=== PATIENT | male | born 1935 | race Caucasian/White ===

== ENCOUNTER 2016-11-12 06:53 | Day surgery (SDC) | payer MEDICARE, OTHER ==
[~2016-11-12 06:53] MED LIST: ATOR10 PO; CLOP75 PO; ECASA PO; ENAL2.5 PO; ISOS30TA3 PO; LIPA1CAP5 PO; METO25 PO; NITR0.4S SL; SYNT125T PO
[2016-11-12] MEDS ORDERED: MIDAZOLAM HCL 5 MG/ML VIAL (1 ML) ONE (07:40)
[2016-11-12] MEDS ORDERED: ceFAZolin INJ 1,000 MG VIAL ONE (07:40)
[2016-11-12] MEDS ORDERED: NS 1000 ML IV SCH (08:00)
[2016-11-12] MEDS ORDERED: ceFAZolin 2 GM PREMIX 50 ML IV SCH (08:00)
[2016-11-12] MEDS ORDERED: MUPIROCIN 2% OINT 1 APPLIC/GM SYR NASAL SCH (08:00)
[2016-11-12] MEDS ORDERED: VANCOMYCIN 1000 MG/NS 250 ML IV SCH ×2 (08:00)
[2016-11-12] MEDS: POVIDONE IODINE 5% (ANTISEPSIS KIT) 4 APPLICATIONS EACH NARE SCH ×2 (08:08→09:00)
[2016-11-12] MEDS: CHLORHEXIDINE GLUCONATE 2 % 1 PACK (2 CLOTHS) TOP SCH ×2 (08:08→09:01)
--- NOTE | 2016-11-12 11:18 | MA ---
cc: AMOS KRISHNAMURTHY DATE 11/12/2016 PROCEDURE Implantation of a Medtronic loop recorder. INDICATIONS Recurrent unexplained syncope/near-syncope. PROCEDURE NOTE The patient was brought to the DOC Unit in a fasting state after having signed informed consent. The left chest was prepped and draped as per policy and a small region anesthetized at approximately the left fourth intercostal space. The Medtronic loop recorder was inserted as per protocol without difficulty. A Steri-Strip was placed over the very small incision. There were no apparent immediate complications. CONCLUSION Successful implantation of a Medtronic Reveal loop recorder. MD QUIANA Espinoza/PREMA /9:35 AM /11:16 AM MTDTiffany
== END 2016-11-12 09:58 | disposition home or self-care (01) ==
LOC: HDOC 06:53 → HDIC 06:53 → HDOC 09:58
PROVIDERS: ATTEND Internal Medicine Cardiovascular Disease
DX: R55 Syncope and collapse (principal); I25.10 Atherosclerotic heart disease of native coronary artery without angina pectoris
CPT/HCPCS: 33282; C1764; J0690; J2250; J3010; J7030

== ENCOUNTER 2016-12-30 12:44 | Day surgery (SDC) | payer MEDICARE, OTHER ==
[~2016-12-30] VITALS: Ht 180.3 cm; Wt 63.0 kg
[2016-12-30] MEDS ORDERED: METOPROLOL TARTRATE 25 MG TAB PO PRN (13:15)
[2016-12-30] MEDS ORDERED: CHLORHEXIDINE GLUCONATE 2 % 1 PACK (2 CLOTHS) TOPICAL PRN (13:15)
[2016-12-30] MEDS ORDERED: ceFAZolin 2 GM PREMIX 50 ML IV SCH (13:15)
[2016-12-30] MEDS ORDERED: LACTATED RINGER'S 1000 ML IV PRN (13:15)
[2016-12-30] MEDS ORDERED: POVIDONE IODINE 5% (ANTISEPSIS KIT) 4 APPLICATIONS EACH NARE PRN (13:15)
[2016-12-30] MEDS ORDERED: MUPIROCIN 2% OINT 1 APPLIC/GM SYR NASAL SCH (13:15)
[2016-12-30] MEDS ORDERED: NS 1000 ML IV SCH (13:15)
[2016-12-30] MEDS ORDERED: SODIUM CHLORID 0.9% 500 ML IV PRN (13:15)
[2016-12-30] MEDS ORDERED: INSULIN HUMAN REGULAR 1,000 UNITS/10 ML VIAL SQ PRN (13:15)
[2016-12-30] MEDS ORDERED: CHLORHEXIDINE GLUCONATE 2 % 1 PACK (2 CLOTHS) TOPICAL SCH (13:15)
[2016-12-30] MEDS ORDERED: VANCOMYCIN 1000 MG/NS 250 ML IV SCH ×2 (13:15)
[2016-12-30] MEDS ORDERED: POVIDONE IODINE 5% (ANTISEPSIS KIT) 4 APPLICATIONS EACH NARE SCH (13:15)
[2016-12-30 13:23] VITALS: BP 150/73; PULSE 89; RESP 18; TEMP 97.7; O2SAT 100
[2016-12-30] MEDS ORDERED: ASPI1TAB69 PO (13:34)
[2016-12-30] MEDS ORDERED: NITR0.4S SL (13:34)
[2016-12-30] MEDS ORDERED: ZENP2000 PO (13:34)
[2016-12-30] MEDS ORDERED: SYNT25TA PO (13:34)
[2016-12-30] MEDS ORDERED: ZOCO20TA PO (13:34)
[2016-12-30 13:40] LABS: BASOPHIL % 0.5 % (0.0-2.0); EOSINOPHIL % 0.3 % (0.0-4.0); HEMATOCRIT 40.4 % (39.0-51.0); HEMO FLAGS DIFF FINAL; LYMPH % 16.1 % (9.0-44.0); LYMPHOCYTE # 1.3 TH/MM3 (1.0-4.8); MEAN CELL VOLUME 92.6 FL (80.0-100.0); MEAN CORPUSCULAR HEMOGLOBIN 32.1 PG (27.0-34.0); MEAN CORPUSCULAR HGB CONC 34.7 % (32.0-36.0); MONO % 9.9 % (0.0-8.0); NEUT % 73.2 % (16.0-70.0); PLATELET COUNT 166 TH/MM3 (150-450); RED BLOOD COUNT 4.36 MIL/MM3 (4.50-5.90); RED CELL DISTRIBUTION WIDTH 14.5 % (11.6-17.2); WHITE BLOOD COUNT 8.2 TH/MM3 (4.0-11.0)
[2016-12-30 13:49] LABS: APTT (PATIENT) 36.9 SEC (24.3-30.1); PROTHROMBIN TIME - PATIENT 10.6 SEC (9.8-11.6)
[2016-12-30 13:56] LABS: BICARBONATE 28.9 MEQ/L (21.0-32.0)
[2016-12-30] MEDS ORDERED: MIDAZOLAM HCL 2 MG/2 ML VIAL ONE (16:32)
[2016-12-30] MEDS ORDERED: PROPOFOL 200 MG/20 ML AMP OTHER ONE (16:42)
[2016-12-30] MEDS ORDERED: LIDOCAINE HCL 2% 50 ML VIAL ONE ×2 (16:59→17:00)
[2016-12-30] MEDS ORDERED: ZOLPIDEM TARTRATE 5 MG TAB PO PRN (18:30)
[2016-12-30] MEDS ORDERED: VANCOMYCIN INJ 1,000 MG in SODIUM CHLOR 0.9% 250 ML INJ 250 ML IV ONE (18:30)
[2016-12-30] MEDS ORDERED: traMADol HCL 50 MG TAB PO PRN (18:30)
[2016-12-30 18:45] VITALS: BP 126/63; PULSE 74; RESP 18; TEMP 97.3; O2SAT 99
[2016-12-30 19:00] VITALS: PULSE 72
--- NOTE | 2016-12-30 19:20 | RADRPT ---
EXAM DATE/TIME: 12/30/2016 18:26 [facility] COMPARISON: CHEST SINGLE AP, March 21, 2015, 21:40. INDICATIONS : Evaluate for pneumothroax. Post pacemaker placement. MEDICAL HISTORY : None. SURGICAL HISTORY : Pacemaker. ENCOUNTER: Initial ACUITY: 1 day PAIN SCORE: Non-responsive. LOCATION: Bilateral chest FINDINGS: Interval placement of cardiac pacer with bipolar leads. No evidence of pneumothorax. The lungs are symmetrically aerated. Moderate tortuosity and ectasia of the thoracic aorta. The heart is normal s ize. Both hemidiaphragms well delineated. CONCLUSION: No evidence of pneumothorax status post pacemaker placement. Caio Mccloud MD on December 30, 2016 at 19:17 Board Certified Radiologist. This report was verified electronically.
[2016-12-30] MEDS ORDERED: DO NOT ADM ANY ANTICOAGULANT DRUGS PRN (19:30)
[2016-12-30 20:00] VITALS: BP 136/66; PULSE 70; RESP 16; TEMP 97.8; O2SAT 99
[2016-12-30] MEDS: LIPASE/PROTEASE/AMYLASE (24,000/76,000/120,000) CAP PO SCH (20:37)
[2016-12-30 23:43] VITALS: BP 135/62; PULSE 77; PULSE 79; RESP 18; TEMP 98.6; O2SAT 99
[2016-12-31] VITALS (12 sets, daily range): BP systolic 105–112; BP diastolic 61–67; PULSE 70–95; RESP 18–20; TEMP 99–99.5; O2SAT 96–98
[2016-12-31] MEDS ORDERED: LEVOTHYROXINE SODIUM 25 MCG TAB PO SCH (06:00)
[2016-12-31] MEDS ORDERED: ASPIRIN EC 81 MG TABEC PO SCH (09:00)
[2016-12-31] MEDS ORDERED: PRAVASTATIN SOD 40 MG TAB PO SCH (09:00)
[2016-12-31] MEDS: LIPASE/PROTEASE/AMYLASE (24,000/76,000/120,000) CAP PO SCH (09:08)
--- NOTE | 2016-12-31 09:08 | PD.CARD.PN ---
Subjective Subjective Remarks Denies pain, dyspnea, dizziness. Objective Medications Item Value Date Time Aspirin 81 mg 12/31/16 0900 (Ecotrin Ec) DAILY/PO Pravastatin Sodium 40 mg 12/31/16 0900 (Pravachol) DAILY/PO Vital Signs / I&O Vital Signs Date Time Temp Pulse Resp B/P Pulse Ox O2 Delivery O2 Flow Rate FiO2 12/31/16 08:00 95 12/31/16 07:00 86 12/31/16 07:00 99.5 93 20 112/67 96 12/31/16 06:12 82 12/31/16 05:53 84 12/31/16 04:39 72 12/31/16 03:00 99.0 91 18 105/61 98 12/31/16 03:00 86 12/31/16 02:00 72 12/31/16 01:43 70 12/31/16 00:54 98 21 12/31/16 00:49 77 12/30/16 23:43 98.6 79 18 135/62 99 12/30/16 23:43 77 12/30/16 20:00 97.8 70 16 136/66 99 12/30/16 19:00 72 12/30/16 18:45 97.3 74 18 126/63 99 12/30/16 13:23 97.7 89 18 150/73 100 I/O 12/30/16 12/30/16 12/30/16 12/31/16 12/31/16 12/31/16 07:00 15:00 23:00 07:00 15:00 23:00 Intake Total 950 ml Output Total 1000 ml Balance -50 ml Intake Oral 700 ml IV Total 250 ml Output Urine Total 1000 ml # Bowel Movements 0 Physical Exam Pacer site clean, dry, intact, nontender. No hematoma. Laboratory Laboratory Tests Test 12/30/16 13:10 White Blood Count 8.2 TH/MM3 Red Blood Count 4.36 MIL/MM3 Hemoglobin 14.0 GM/DL Hematocrit 40.4 % Mean Corpuscular Volume 92.6 FL Mean Corpuscular Hemoglobin 32.1 PG Mean Corpuscular Hemoglobin 34.7 % Concent Red Cell Distribution Width 14.5 % Platelet Count 166 TH/MM3 Mean Platelet Volume 8.4 FL Neutrophils (%) (Auto) 73.2 % Lymphocytes (%) (Auto) 16.1 % Monocytes (%) (Auto) 9.9 % Eosinophils (%) (Auto) 0.3 % Basophils (%) (Auto) 0.5 % Neutrophils # (Auto) 6.0 TH/MM3 Lymphocytes # (Auto) 1.3 TH/MM3 Monocytes # (Auto) 0.8 TH/MM3 Eosinophils # (Auto) 0.0 TH/MM3 Basophils # (Auto) 0.0 TH/MM3 CBC Comment DIFF FINAL Differential Comment Prothrombin Time 10.6 SEC Prothromb Time International 1.0 RATIO Ratio Activated Partial 36.9 SEC Thromboplast Time Sodium Level 130 MEQ/L Potassium Level 4.0 MEQ/L Chloride Level 92 MEQ/L Carbon Dioxide Level 28.9 MEQ/L Anion Gap 9 MEQ/L Blood Urea Nitrogen 15 MG/DL Creatinine 0.85 MG/DL Estimat Glomerular Filtration 86 ML/MIN Rate Random Glucose 94 MG/DL Calcium Level 9.0 MG/DL Imaging Last 48 hours Impressions Chest X-Ray 12/30/16 0000 Signed Impressions: Service Date/Time: Friday, December 30, 2016 18:26 - CONCLUSION: No evidence of pneumothorax status post pacemaker placement. Caio Mccloud MD Assessment and Plan Problem List: (1) Status post placement of cardiac pacemaker Assessment and Plan: Stable overnight. Pacer site OK. Pacer re-interrogation shows stable, good pacing parameters. To discharge home today, same home medications plus Levaquin 500 mg qd for 5 days. Follow up in our office next week for pacer and incision site recheck. (2) Hyperlipidemia Assessment and Plan: Continues on statin. Follows with his PCP as an outpatient. (3) CAD (coronary artery disease) Assessment and Plan: History of NSTEMI treated medically. Stable. No angina symptoms. LV function by previous echo normal. Continue daily aspirin. Code Status full code Discussed Condition With patient Problem Qualifiers (1) Hyperlipidemia: Qualified Code: E78.2 - Mixed hyperlipidemia (2) CAD (coronary artery disease): Qualified Code: I25.10 - Coronary artery disease involving [place] coronary artery of [place] heart without angina pectoris Ancelmo Bear MD Dec 31, 2016 09:08
[2016-12-31] MEDS ORDERED: LEVA500T PO (09:12)
--- NOTE | 2016-12-31 11:04 | EKG ---
Date Performed: 12/30/2016 Time Performed: 13:23:32 PTAGE: 81 years EKG: Sinus rhythm . Left axis deviation RBBB with left anterior fascicular block Possible septal infarct - age undeterm ined Abnormal ECG PREVIOUS TRACING : 03/22/2015 11.08 DOCTOR: Angel Heller Interpretating Date/Time 12/31/2016 11:02:29
--- NOTE | 2017-01-01 17:05 | MP ---
cc: MYLA KRISHNAMURTHY M.D. DATE OF SURGERY: 12/30/2016. PROCEDURE: Dual-chamber permanent pacemaker implantation via the right subclavian vein, explantation of a loop recorder from the left chest. INDICATIONS: Symptomatic sick sinus syndrome. DESCRIPTION OF THE PROCEDURE IN DETAIL / OPERATIVE NOTES: The patient was brought to the operating suite in a fasting state after having signed informed consent. The right upper chest was prepped and draped as per policy and anesthetized with 1% lidocaine. Using modified Seldinger technique, central venous access was obtained twice via the right subclavian vein after administration of 10 mL of contrast through a right arm peripheral IV. A transverse incision was made inferior to the right clavicle and using blunt dissection a subcutaneous pocket was formed down to the pectoralis fascia. Over the more lateral guidewire, 6-[place] sheath was placed and through this sheath a ventricular active fixation lead was introduced and its tip positioned in the right ventricular apex where good current of injury, stimulation threshold (0.7 volts) and sensitivity (5.8 mV) were verified. This lead was secured into place using 2-0 silk ties down to the pectoralis fascia. Over the remaining guidewire, a 7-[place] sheath was placed and through this sheath an atrial active fixation lead was introduced and its tip positioned in the right atrial appendage where good current of injury, stimulation threshold (1.8 volts) and sensitivity (1.2 mV) were verified. This lead was secured into place using 2-0 silk ties down to the pectoralis fascia. The leads were then connected to the pacemaker generator which is a [employer] MRI compatible Eluna device. The leads and the generator were then placed back into the subcutaneous pocket which was closed using 3-0 Vicryl interrupted stitches in two layers to close the subcutaneous tissue and then 4-0 Monocryl running stitch to close the subcuticular tissue. Overlapping Steri-Strips and a dressing were applied. There were no apparent immediate complications. A portable chest x-ray is pending at the time of this dictation. The left upper chest was also prepped and draped as per policy. A transverse incision was made over the preexisting loop recorder, and the loop recorder removed without difficulty. Steri-Strips were placed over the small incision. CONCLUSIONS: Successful dual-chamber permanent pacemaker implantation via the right subclavian vein using a [employer] Eluna pacemaker generator, status post extraction of a loop recorder from the left chest. MD QUIANA Espinoza/FABIAN /6:13 PM /4:49 PM EDMUND
== END 2016-12-31 09:58 | disposition home or self-care (01) ==
LOC: HDOC 12:44 → HDIC 12:44 → HCIS 18:39 → HDOC 12-31 09:58
PROVIDERS: ATTEND Internal Medicine Cardiovascular Disease
DX: I49.5 Sick sinus syndrome (principal); I45.2 Bifascicular block; I25.10 Atherosclerotic heart disease of native coronary artery without angina pectoris; J44.9 Chronic obstructive pulmonary disease, unspecified; R42 Dizziness and giddiness; E78.5 Hyperlipidemia, unspecified; R79.1 Abnormal coagulation profile; D64.9 Anemia, unspecified; Z79.82 Long term (current) use of aspirin
CPT/HCPCS: 00530; 33208; 33284; 71010; 80048; 85025; 85610; 85730; 93005; C1785; C1898; J2250; J3010; J3370; J7050; C1779

== ENCOUNTER 2018-02-04 03:55 | Emergency (ER) | payer MEDICARE, OTHER ==
[~2018-02-04] VITALS: Ht 172.7 cm; Wt 65.0 kg
[~2018-02-04 03:55] MED LIST changes: +ASPI1TAB69 PO; -ATOR10 PO; -CLOP75 PO; -ECASA PO; -ENAL2.5 PO; -ISOS30TA3 PO; +LEVA500T PO; -LIPA1CAP5 PO; -METO25 PO; -SYNT125T PO; +SYNT25TA PO; +ZENP2000 PO; +ZOCO20TA PO
[2018-02-04 04:08] VITALS: BP 161/74; PULSE 62; RESP 16; TEMP 98.9; O2SAT 99
[2018-02-04] MEDS ORDERED: ASPI-516 CHEW (04:14)
[2018-02-04] MEDS ORDERED: TETANUS/DIPHTHERIA TOXOID ADULT 0.5 ML VIAL IM ONE (04:30)
[2018-02-04 04:35] LABS: AUTOMATED NEUTROPHIL # 9.7 TH/MM3 (1.8-7.7); BASOPHIL # 0.1 TH/MM3 (0-0.2); BASOPHIL % 0.4 % (0.0-2.0); EOSINOPHIL % 0.1 % (0.0-4.0); HEMATOCRIT 30.8 % (39.0-51.0); HEMOGLOBIN 10.8 GM/DL (13.0-17.0); LYMPH % 11.3 % (9.0-44.0); LYMPHOCYTE # 1.4 TH/MM3 (1.0-4.8); MEAN CELL VOLUME 88.4 FL (80.0-100.0); MEAN PLATELET VOLUME 7.7 FL (7.0-11.0); MONO % 8.3 % (0.0-8.0); NEUT % 79.9 % (16.0-70.0); PLATELET COUNT 305 TH/MM3 (150-450); RED BLOOD COUNT 3.48 MIL/MM3 (4.50-5.90); RED CELL DISTRIBUTION WIDTH 16.4 % (11.6-17.2); WHITE BLOOD COUNT 12.2 TH/MM3 (4.0-11.0)
[2018-02-04 04:47] LABS: ALBUMIN 2.8 GM/DL (3.4-5.0); ALT (GPT) 17 U/L (12-78); AST (GOT) 28 U/L (15-37); BICARBONATE 24.6 MEQ/L (21.0-32.0); BLOOD UREA NITROGEN 18 MG/DL (7-18); CALCIUM 8.4 MG/DL (8.5-10.1); CHLORIDE 100 MEQ/L (98-107); CREATININE 0.96 MG/DL (0.60-1.30); GLOMERULAR FILTRATION RATE 75 ML/MIN (>89); GLUCOSE,RANDOM 117 MG/DL (74-106); SODIUM (NA) 133 MEQ/L (136-145)
[2018-02-04 04:48] LABS: ALKALINE PHOSPHATASE 145 U/L (45-117); TOTAL BILIRUBIN ADULT 0.6 MG/DL (0.2-1.0)
--- NOTE | 2018-02-04 04:55 | RADRPT ---
EXAM DATE/TIME: 02/04/2018 04:35 [facility] COMPARISON: No previous studies available for comparison. INDICATIONS : Trauma, fall. Patient denies hitting head. RADIATION DOSE: 41.14 CTDIvol (mGy) MEDICAL HISTORY : Carcinoma, pancreas. Myocardial infarction. Chronic obstructive pulmonary disease. SURGICAL HISTORY : Pacemaker. ENCOUNTER: Initial ACUITY: 1 day PAIN SCALE: 0/10 LOCATION: cranial TECHNIQUE: Multiple contiguous axial images were obtained of the head. Using automated exposure control and adj ustment of the mA and/or kV according to patient size, radiation dose was kept as low as reasonably a chievable to obtain optimal diagnostic quality images. DICOM format image data is available electro nically for review and comparison. FINDINGS: CEREBRUM: The ventricles are normal for age with diffuse moderate atrophic change. There is sulcal and ventricu lar prominence. No evidence of midline shift, mass lesion, hemorrhage or acute infarction. No extra- axial fluid collections are seen. POSTERIOR FOSSA: The cerebellum and brainstem are intact. The 4th ventricle is midline. The cerebellopontine angle i s unremarkable. EXTRACRANIAL: The visualized portion of the orbits is intact. SKULL: The calvaria is intact. No evidence of skull fracture. CONCLUSION: 1. Negative trauma CT with no evidence of fracture or hemorrhage. 2. Diffuse moderate atrophic change. Carter Arreaga MD on February 04, 2018 at 4:53 Board Certified Radiologist. This report was verified electronically.
--- NOTE | 2018-02-04 05:09 | RADRPT ---
EXAM DATE/TIME: 02/04/2018 04:28 [facility] COMPARISON: No previous studies available for comparison. INDICATIONS : Left hand pain after fall. MEDICAL HISTORY : Carcinoma, pancreatic. SURGICAL HISTORY : Pacemaker. ENCOUNTER: Initial ACUITY: 1 day PAIN SCORE: 8/10 LOCATION: Left hand. FINDINGS: AP, lateral and oblique views of the left hand were obtained and demonstrate diffuse osteopenia. Dege nerative changes are noted involving the interphalangeal joints with joint space loss, sclerosis and hypertrophic changes. There is moderate degenerative change involving the first metacarpal carpal yoon nt as well as degenerative change involving the trapezium scaphoid joint. There is no acute fracture or malalignment. The distal radius and ulna are intact. There is no focal soft tissue abnormality. CONCLUSION: 1. No acute fracture or malalignment. 2. Diffuse osteopenia and osteoarthritic changes. Carter Arreaga MD on February 04, 2018 at 5:06 Board Certified Radiologist. This report was verified electronically.
[2018-02-04 05:16] LABS: TOXIC GRANULATION 1+ (NORMAL)
--- NOTE | 2018-02-04 05:17 | RADRPT ---
EXAM DATE/TIME: 02/04/2018 04:25 [facility] COMPARISON: No previous studies available for comparison. INDICATIONS : Left elbow pain after fall. MEDICAL HISTORY : Carcinoma, pancreatic. SURGICAL HISTORY : Pacemaker. ENCOUNTER: Initial ACUITY: 1 day PAIN SCORE: 8/10 LOCATION: Left elbow. FINDINGS: Multiple view examination of the left elbow demonstrates no soft tissue swelling, joint effusion, or fracture. The osseous structures are in normal alignment. Bony mineralization is normal. CONCLUSION: Negative trauma study. Carter Arreaga MD on February 04, 2018 at 5:16 Board Certified Radiologist. This report was verified electronically.
[2018-02-04] MEDS ORDERED: AUGM875T3 PO (05:54)
--- NOTE | 2018-02-04 05:54 | PD ---
HPI Chief Complaint: Fall Time Seen by Provider: 04:16 Travel History International Travel<30 days: No Contact w/Intl Traveler<30days: No Traveled to known affect area: No History of Present Illness HPI Patient is an 82-year-old male with history of cancer, currently undergoing chemo, who comes in after a fall. He says he has been increasingly weak due to the chemo and has been falling often. He fell yesterday, but did not come to the hospital. Today he says he was on the toilet when he fell forward because he leaned over too far. He denies any loss of consciousness. He has multiple skin tears to his arms. He denies fever or chills. He denies chest pain or shortness of breath. He denies abdominal pain, nausea or vomiting. He does not know when his last tetanus vaccine was. Severity is mild to moderate. PFSH Past Medical History Autoimmune Disease: No Cancer: Yes (PANCREATIC) Cardiovascular Problems: Yes (ME, CAD) High Cholesterol: Yes Chemotherapy: Yes Chest Pain: No COPD: Yes ("SLIGHT") Diabetes: No Diminished Hearing: Yes ([place]) Endocrine: Yes Gastrointestinal Disorders: Yes (LIVER ABSCESS) GERD: Yes Glaucoma: No Genitourinary: No Hepatitis: No Hiatal Hernia: No Hypertension: No Immune Disorder: No Neurologic: No Psychiatric: No Reproductive: No Respiratory: Yes (COPD) Integumentary: No Immunizations Current: Yes Radiation Therapy: Yes Thyroid Disease: Yes (hypothyroid) Tetanus Vaccination: Unknown Influenza Vaccination: Yes Past Surgical History Abdominal Surgery: Yes (BILL MCKEON 2 PROCEDURE; BILAT ING HERNIA) Genitourinary Surgery: Yes (TRUP) Tonsillectomy: Yes Other Surgery: Yes (HEAD OF PANCREAS REMOVED) Social History Alcohol Use: No Tobacco Use: No Substance Use: No Allergies-Medications (Allergen,Severity, Reaction): Coded Allergies: meperidine (Unverified Allergy, Unknown, HALLUCINATIONS, 05/12/17) Reported Meds & Prescriptions Reported Meds & Active Scripts Active Reported Aspirin 81 Mg Chew 81 Mg CHEW DAILY Zocor (Simvastatin) 20 Mg Tab 20 Mg PO DAILY Zenpep (Pancrelipase) 20,000-68,000-109,000 Units Cap 1 Cap PO TIDPC Synthroid (Levothyroxine Sodium) 25 Mcg Tab 25 Mcg PO DAILY Nitrostat SL (Nitroglycerin) 0.4 Mg Subl 0.4 Mg SL DIRECTED PRN 1 tablet under the tongue as needed for chest pain. Repeat every 5 minutes for a total of 3 DOSES or call 911 if NO relief. Review of Systems Except as stated in HPI: all other systems reviewed are Neg General / Constitutional: No: Fever, Chills Eyes: No: Blurred Vision HENT: No: Headaches, Lightheadedness Cardiovascular: No: Chest Pain or Discomfort Respiratory: No: Shortness of Breath Gastrointestinal: No: Nausea Musculoskeletal: No: Myalgias, Arthralgias Skin: Positive Other (Skin tears) Neurologic: Positive: Weakness Physical Exam Narrative GENERAL: Awake and alert, no acute distress. SKIN: Multiple skin tears to both arms. Skin tear to the left hand leaves tendon exposed, bone is not exposed. HEAD: Atraumatic. Normocephalic. EYES: Pupils equal and round. No scleral icterus. Extraocular movements intact. ENT: Mucous membranes pink and moist. NECK: Trachea midline. No JVD. CARDIOVASCULAR: Regular rate and rhythm. No murmur appreciated. RESPIRATORY: No accessory muscle use. Clear to auscultation. Breath sounds equal bilaterally. GASTROINTESTINAL: Abdomen soft, non-tender, nondistended. MUSCULOSKELETAL: No obvious deformities. No clubbing. No cyanosis. No edema. No spinal tenderness. No tenderness to palpation of the upper extremities. Full range of motion of his extremities. NEUROLOGICAL: Awake and alert. No obvious cranial nerve deficits. Motor grossly within normal limits. Normal speech. PSYCHIATRIC: Appropriate mood and affect; insight and judgment normal. Data Data Last Documented VS Vital Signs Date Time Temp Pulse Resp B/P (MAP) Pulse Ox O2 Delivery O2 Flow Rate FiO2 02/04/18 04:08 98.9 62 16 161/74 (103) 99 Orders Orders Iv Access Insert/Monitor (02/04/18 04:16) Complete Blood Count With Diff (02/04/18 04:16) Comprehensive Metabolic Panel (02/04/18 04:16) Ct Brain W/O Iv Contrast(Rout) (02/04/18 ) Elbow, Complete (4 Vws) (02/04/18 ) Hand, Complete ([id number]) (02/04/18 ) Tetanus/Diphtheria Tox Adult (Tetanus/Di (02/04/18 04:30) Oxycodone (Roxicodone) (02/04/18 05:00) Labs Laboratory Tests Test 02/04/18 04:20 White Blood Count 12.2 TH/MM3 Red Blood Count 3.48 MIL/MM3 Hemoglobin 10.8 GM/DL Hematocrit 30.8 % Mean Corpuscular Volume 88.4 FL Mean Corpuscular Hemoglobin 31.0 PG Mean Corpuscular Hemoglobin Concent 35.0 % Red Cell Distribution Width 16.4 % Platelet Count 305 TH/MM3 Mean Platelet Volume 7.7 FL Neutrophils (%) (Auto) 79.9 % Lymphocytes (%) (Auto) 11.3 % Monocytes (%) (Auto) 8.3 % Eosinophils (%) (Auto) 0.1 % Basophils (%) (Auto) 0.4 % Neutrophils # (Auto) 9.7 TH/MM3 Lymphocytes # (Auto) 1.4 TH/MM3 Monocytes # (Auto) 1.0 TH/MM3 Eosinophils # (Auto) 0.0 TH/MM3 Basophils # (Auto) 0.1 TH/MM3 CBC Comment AUTO DIFF Differential Comment AUTO DIFF CONFIRMED Toxic Granulation 1+ Platelet Estimate NORMAL Platelet Morphology Comment NORMAL Blood Urea Nitrogen 18 MG/DL Creatinine 0.96 MG/DL Random Glucose 117 MG/DL Total Protein 7.0 GM/DL Albumin 2.8 GM/DL Calcium Level 8.4 MG/DL Alkaline Phosphatase 145 U/L Aspartate Amino Transf (AST/SGOT) 28 U/L Alanine Aminotransferase (ALT/SGPT) 17 U/L Total Bilirubin 0.6 MG/DL Sodium Level 133 MEQ/L Potassium Level 4.9 MEQ/L Chloride Level 100 MEQ/L Carbon Dioxide Level 24.6 MEQ/L Anion Gap 8 MEQ/L Estimat Glomerular Filtration Rate 75 ML/MIN [facility] Medical Decision Making Medical Screen Exam Complete: Yes Emergency Medical Condition: Yes Medical Record Reviewed: Yes Differential Diagnosis Skin tear versus fracture versus electrolyte abnormality versus laceration Narrative Course Patient is an 82-year-old male comes in after fall. He has multiple skin tears , including 1 to the left dorsal surface of his hand with exposed tendon. There is no exposed bone. He has full range of motion of his fingers. Patient skin is very thin and unable to be sewn together. Wound care provided. His is a nurse. She is advised to keep a close eye on his wounds, re-bandage them daily. Advised return anytime for any signs of infection. Advised follow- up with hand surgery. Given a prescription for antibiotics. Advised return anytime for any worsening symptoms. Tetanus vaccine updated. Patient given his pain medicine that he takes at home. Diagnosis Primary Impression: Fall Qualified Codes: W19.XXXA - Unspecified fall, initial encounter Additional Impressions: Skin tear of left elbow without complication Qualified Codes: S51.012A - Laceration without foreign body of left elbow, initial encounter Skin tear of hand without complication Qualified Codes: S61.412A - Laceration without foreign body of left hand, initial encounter Skin tear of right elbow without complication Qualified Codes: S51.011A - Laceration without foreign body of right elbow, initial encounter Referrals: Bg Dominguez MD call for appointment Patient Instructions: General Instructions, Skin Tear (ED) Additional Instructions: Take all the antibiotic. Keep your wounds clean and dry. Return anytime for any worsening symptoms. Scripts Amoxicillin-Clavulanate (Augmentin) 875-125 Mg Tab 1 TAB PO BID for Infection for 7 Days, #14 TAB 0 Refills Prov: Gina Lerma MD 02/04/18 Disposition: 01 DISCHARGE HOME Condition: Stable Gina Lerma MD February 04, 2018 05:54
== END 2018-02-04 06:25 | disposition home or self-care (01) ==
LOC: NEPE 03:55
DX: S51.012A Laceration without foreign body of left elbow, initial encounter (principal); S61.412A Laceration without foreign body of left hand, initial encounter; S51.011A Laceration without foreign body of right elbow, initial encounter; C25.9 Malignant neoplasm of pancreas, unspecified; M85.842 Other specified disorders of bone density and structure, left hand; K21.9 Gastro-esophageal reflux disease without esophagitis; E03.9 Hypothyroidism, unspecified; W18.11XA Fall from or off toilet without subsequent striking against object, initial encounter; Z23 Encounter for immunization
CPT/HCPCS: 70450; 73080; 73130; 80053; 85025; 90714; 96372

== ENCOUNTER 2018-02-11 08:04 | Emergency (ER) | payer MEDICARE, OTHER ==
[~2018-02-11] VITALS: Ht 177.8 cm; Wt 52.0 kg
[~2018-02-11 08:04] MED LIST changes: +ASPI-516 CHEW; -ASPI1TAB69 PO; +AUGM875T3 PO; -LEVA500T PO
[2018-02-11 08:13] VITALS: BP 117/67; PULSE 144; RESP 24; TEMP 97.9; O2SAT 91
[2018-02-11 08:18] VITALS: BP 117/67; PULSE 144; RESP 24; TEMP 97.9; O2SAT 91
[2018-02-11] MEDS ORDERED: ASPI-146 PO (08:41)
[2018-02-11] MEDS ORDERED: VITA2000 PO (08:41)
[2018-02-11] MEDS ORDERED: METO25TA3 PO (08:41)
[2018-02-11] MEDS ORDERED: MECL-62 PO (08:41)
[2018-02-11] MEDS ORDERED: OXYC1CAP PO (08:41)
[2018-02-11] MEDS ORDERED: SODIUM CHLORIDE 0.9% FLUSH 10 ML FLUSH IVF PRN (08:45)
[2018-02-11 08:52] VITALS: PULSE 144; RESP 24; O2SAT 94
[2018-02-11] MEDS: RESP: ALBUTEROL 2.5 MG/3 ML NEB (SCH) INH ×2 (08:52→08:53)
[2018-02-11 08:53] VITALS: O2SAT 92
--- NOTE | 2018-02-11 09:03 | RADRPT ---
EXAM DATE/TIME: 02/11/2018 08:47 [facility] COMPARISON: CHEST SINGLE AP, December 30, 2016, 18:26. HAND LEFT COMPLETE ([id number]), February 04, 2018, 4:28. INDICATIONS : Short of Breath MEDICAL HISTORY : Carcinoma, pancreas. Myocardial infarction. Chronic obstructive pulmonary disease SURGICAL HISTORY : Pacemaker. ENCOUNTER: Initial ACUITY: 1 day PAIN SCORE: 0/10 LOCATION: chest FINDINGS: There's a transvenous pacer in satisfactory position. The heart is normal in size. The ascending aort a appears mildly enlarged. There is a sizable area of probable loculated fluid along the lateral margin of the right chest. CT i maging to exclude mass would be warranted. There is patchy infiltrate seen bilaterally. The visualized bony structures are grossly intact. CONCLUSION: 1. 6 x 6 cm well-circumscribed masslike densely along the lateral margin of the right lung possibly r epresenting loculated fluid. CT imaging to exclude malignancy as warranted. 2. Patchy areas of infiltrate bilaterally. Juan J Boogie MD on February 11, 2018 at 8:57 Board Certified Radiologist. This report was verified electronically.
[2018-02-11 09:12] LABS: AUTOMATED NEUTROPHIL # 28.9 TH/MM3 (1.8-7.7); BASOPHIL # 0.1 TH/MM3 (0-0.2); BASOPHIL % 0.2 % (0.0-2.0); HEMATOCRIT 37.7 % (39.0-51.0); HEMOGLOBIN 12.3 GM/DL (13.0-17.0); LYMPH % 3.4 % (9.0-44.0); LYMPHOCYTE # 1.1 TH/MM3 (1.0-4.8); MEAN CELL VOLUME 93.7 FL (80.0-100.0); MEAN CORPUSCULAR HEMOGLOBIN 30.6 PG (27.0-34.0); MEAN CORPUSCULAR HGB CONC 32.6 % (32.0-36.0); MEAN PLATELET VOLUME 8.5 FL (7.0-11.0); MONO % 5.8 % (0.0-8.0); MONOCYTE # 1.9 TH/MM3 (0-0.9); NEUT % 90.6 % (16.0-70.0); PLATELET COUNT 287 TH/MM3 (150-450); RED BLOOD COUNT 4.02 MIL/MM3 (4.50-5.90); RED CELL DISTRIBUTION WIDTH 17.5 % (11.6-17.2); WHITE BLOOD COUNT 31.9 TH/MM3 (4.0-11.0)
[2018-02-11 09:26] LABS: CREATININE 1.73 MG/DL (0.60-1.30)
[2018-02-11 09:31] LABS: TROPONIN I 0.22 NG/ML (0.02-0.05)
[2018-02-11 09:55] LABS: BANDS 5 % (0-6); CORRECTED NUCLEATED RBC 1 /100 WBC (0-0); LYMPHOCYTES 7 % (9-44); MONOCYTES 8 % (0-8); MYELOCYTES 1 % (0-0); NEUTROPHIL # MANUAL DIFF 27.1 TH/MM3 (1.8-7.7); NUCLEATED RED BLOOD CELL 1 (0-0); POLYS (SEG NEUTROPHILS) 79 % (16-70); TOXIC GRANULATION 1+ (NORMAL)
[2018-02-11 09:56] LABS: ACANTHOCYTES 1+ (NORMAL); OVALOCYTES 1+ (NORMAL)
--- NOTE | 2018-02-11 10:02 | PD ---
HPI Chief Complaint: Respiratory Symptoms Time Seen by Provider: 08:35 Travel History International Travel<30 days: No Contact w/Intl Traveler<30days: No History of Present Illness HPI This 82-year-old male with a history of metastatic pancreatic cancer, who presents here today with complaints of respiratory distress. The patient was being worked up for hospice and that she had an appointment this afternoon with a [facility] hospice group. According to the he became progressively short of breath over the last 24 hours. She reports that her up most the night with him coughing and wheezing. He is a DO NOT RESUSCITATE patient. states that she believes her is "ready to go". She reports that he does not wish to fight this anymore. states they had a long discussion with his oncologist and there is no benefit from him continuing with chemotherapy and treatment. PFSH Past Medical History Autoimmune Disease: No Cancer: Yes (PANCREATIC) Cardiovascular Problems: Yes (PACEMAKER BIOTRONIC) High Cholesterol: Yes Chemotherapy: Yes Chest Pain: No COPD: Yes Diabetes: No Diminished Hearing: Yes (NUIQSUT) Endocrine: Yes Gastrointestinal Disorders: Yes (LIVER ABSCESS) GERD: Yes Glaucoma: No Genitourinary: No Hepatitis: No Hiatal Hernia: No Hypertension: No Immune Disorder: No Neurologic: No Psychiatric: No Reproductive: No Respiratory: Yes (LUNG CA ) Integumentary: No Immunizations Current: Yes Radiation Therapy: Yes Thyroid Disease: Yes (hypothyroid) Past Surgical History Abdominal Surgery: Yes (BILL MCKEON 2 PROCEDURE; BILAT ING HERNIA) Genitourinary Surgery: Yes (TRUP) Tonsillectomy: Yes Other Surgery: Yes (HEAD OF PANCREAS REMOVED) Social History Alcohol Use: No Tobacco Use: No Substance Use: No Allergies-Medications (Allergen,Severity, Reaction): Coded Allergies: meperidine (Unverified Allergy, Unknown, HALLUCINATIONS, 05/12/17) Reported Meds & Prescriptions Reported Meds & Active Scripts Active Augmentin (Amoxicillin-Clavulanate) 875-125 Mg Tab 1 Tab PO BID 7 Days Reported Oxycodone (Oxycodone HCl) 5 Mg Cap 5 Mg PO Q4H PRN Meclizine (Meclizine HCl) 25 Mg Tab 25 Mg PO DIRECTED PRN Vitamin D3 (Cholecalciferol) 2,000 Unit Cap 2,000 Units PO DAILY Ecotrin Regular Strength (Aspirin) 325 Mg Tabdr 325 Mg PO DAILY Metoprolol Tartrate 25 Mg Tab 25 Mg PO BID Aspirin 81 Mg Chew 81 Mg CHEW DAILY Zocor (Simvastatin) 20 Mg Tab 20 Mg PO DAILY Zenpep (Pancrelipase) 20,000-68,000-109,000 Units Cap 1 Cap PO TIDPC Synthroid (Levothyroxine Sodium) 25 Mcg Tab 25 Mcg PO DAILY Nitrostat SL (Nitroglycerin) 0.4 Mg Subl 0.4 Mg SL DIRECTED PRN 1 tablet under the tongue as needed for chest pain. Repeat every 5 minutes for a total of 3 DOSES or call 911 if NO relief. Review of Systems ROS Limitations: Clinical Condition (Patient unable to give history.) Except as stated in HPI: all other systems reviewed are Neg (All review of systems was obtained through the .) General / Constitutional: No: Fever, Chills Cardiovascular: No: Chest Pain or Discomfort, Palpitations Respiratory: Positive: Cough, Shortness of Breath, Wheezing Gastrointestinal: Positive: Loss of Appetite, No: Nausea, Vomiting, Abdominal Pain Genitourinary: Positive: Decreased Urinary Output, No: Dysuria Musculoskeletal: Positive: Weakness (Generalized), No: Pain Neurologic: Positive: Weakness (Generalized), Change in Mentation, No: Headache Physical Exam Narrative GENERAL: Elderly ill weak appearing gentleman in moderate to severe respiratory distress. SKIN: Focused skin assessment warm/dry. HEAD: Atraumatic. Normocephalic. EYES: No scleral icterus. No injection or drainage. ENT: No nasal bleeding or discharge. Mucous membranes pink and moist. NECK: Trachea midline. Supple. CARDIOVASCULAR: Sinus tachycardia with a rate in 140s. No obvious murmur appreciated. RESPIRATORY: Coarse rhonchi bilaterally. Rales appreciated in the mid right lung and lower lung field. GASTROINTESTINAL: Abdomen soft, scaphoid, nondistended. MUSCULOSKELETAL: No obvious deformities. No clubbing. No cyanosis. No edema. Positive skin tenting. NEUROLOGICAL: Awake and confused and nonverbal. No obvious cranial nerve deficits. Motor grossly within normal limits. Data Data Last Documented VS Vital Signs Date Time Temp Pulse Resp B/P (MAP) Pulse Ox O2 Delivery O2 Flow Rate FiO2 02/11/18 08:53 92 Non-Rebreather 100 02/11/18 08:52 15.00 02/11/18 08:52 144 24 02/11/18 08:18 97.9 Orders Orders Electrocardiogram (02/11/18 ) Complete Blood Count With Diff (02/11/18 08:35) Basic Metabolic Panel (Bmp) (02/11/18 08:35) B-Type Natriuretic Peptide (02/11/18 08:35) Ckmb (Isoenzyme) Profile (02/11/18 08:35) Troponin I (02/11/18 08:35) Iv Access Insert/Monitor (02/11/18 08:35) Ecg Monitoring (02/11/18 08:35) Oximetry (02/11/18 08:35) Oxygen Administration (02/11/18 08:35) Chest, Single Ap (02/11/18 08:35) Sodium Chloride 0.9% Flush (Ns Flush) (02/11/18 08:45) Albuterol Neb (Albuterol Neb) (02/11/18 08:45) Consult Palliative Care (02/11/18 ) (Hub Use Only)Inp Phy Cons/Ref (02/11/18 ) Labs Laboratory Tests Test 02/11/18 08:56 White Blood Count 31.9 TH/MM3 Red Blood Count 4.02 MIL/MM3 Hemoglobin 12.3 GM/DL Hematocrit 37.7 % Mean Corpuscular Volume 93.7 FL Mean Corpuscular Hemoglobin 30.6 PG Mean Corpuscular Hemoglobin Concent 32.6 % Red Cell Distribution Width 17.5 % Platelet Count 287 TH/MM3 Mean Platelet Volume 8.5 FL Neutrophils (%) (Auto) 90.6 % Lymphocytes (%) (Auto) 3.4 % Monocytes (%) (Auto) 5.8 % Eosinophils (%) (Auto) 0.0 % Basophils (%) (Auto) 0.2 % Neutrophils # (Auto) 28.9 TH/MM3 Lymphocytes # (Auto) 1.1 TH/MM3 Monocytes # (Auto) 1.9 TH/MM3 Eosinophils # (Auto) 0.0 TH/MM3 Basophils # (Auto) 0.1 TH/MM3 CBC Comment AUTO DIFF Differential Total Cells Counted 100 Neutrophils % (Manual) 79 % Band Neutrophils % 5 % Lymphocytes % 7 % Monocytes % 8 % Neutrophils # (Manual) 27.1 TH/MM3 Myelocytes 1 % Nucleated Red Blood Cells 1 /100 WBC Differential Comment FINAL DIFF MANUAL Toxic Granulation 1+ Platelet Estimate NORMAL Platelet Morphology Comment NORMAL Ovalocytes 1+ Acanthocytes 1+ Blood Urea Nitrogen 41 MG/DL Creatinine 1.73 MG/DL Random Glucose 155 MG/DL Calcium Level 10.0 MG/DL Sodium Level 142 MEQ/L Potassium Level 4.3 MEQ/L Chloride Level 105 MEQ/L Carbon Dioxide Level 11.0 MEQ/L Anion Gap 26 MEQ/L Estimat Glomerular Filtration Rate 38 ML/MIN Total Creatine Kinase 61 U/L Troponin I 0.22 NG/ML MDM Medical Decision Making Medical Screen Exam Complete: Yes Emergency Medical Condition: Yes Differential Diagnosis Pneumonia versus pulmonary embolus versus worsening metastatic disease. Diagnosis Primary Impression: End-stage pancreatic cancer Additional Impressions: Pancreatic cancer Respiratory distress Bilateral pneumonia Pranav Abrams MD February 11, 2018 10:02
[2018-02-11] MEDS ORDERED: MORPHINE SULFATE 4 MG/ML INJ IM PRN (10:15)
--- NOTE | 2018-02-11 10:57 | PD.CONS ---
Consult Service Palliative Care Consult Requested By Dr. Abrams . Primary Care Physician Lorna Grimm M.D. . Reason for Consultation a. To assist with evaluation and management of symptoms including: Dyspnea b. To assist medical decision maker(s) with: better understanding of current medical conditions; weighing benefits/burdens of medical treatment options; making medical treatment decisions. . HPI History of Present Illness This 82-year-old male, with a past history of COPD, KS, pancreatic cancer, and more recent lung cancer, has been declining over the past few months. He has been losing weight and has been getting quite a bit weaker in the last couple weeks. He has had multiple falls, some resulting in skin tears, and one resulting in an emergency department visit on 02/04/18. The patient has been on chemotherapy for the past 6 weeks for his most recent lung cancer, and the patient and report that they were told last week by the oncologist that the patient was too weak to continue getting additional chemotherapy. Over the last 2 days, the patient has become much more dyspneic, and he presented to the emergency department this morning, where initial findings included: * Moderate dyspnea, hypoxia * Temp 97.9, pulse 140, respirations 24, blood pressure 117/67, initial oxygen saturation in the 70s, now 91% on nonrebreather * White count 31.9, hemoglobin 12.3 * Sodium 142, creatinine 1.73 * Chest x-ray with the appearance of a mass on the right, possibly fluid versus malignancy, and also bilateral patchy infiltrates The patient was placed on a nonrebreather and lab work was obtained. 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 The patient has been on chemotherapy for the last 6 or 7 weeks for this last sarcoid tumor, but has been declining. Last week, their oncologist reportedly told the patient that he was too weak for additional chemotherapy and recommended hospice. The patient had not engaged hospice contact or services since then. The patient has lost about 10 pounds over the past 4 months. His appetite is markedly decreased. Palliative Care was consulted to assist with symptom management, and to enter into discussion with the patient and family regarding his current illnesses, the prognosis, and the benefits and burdens of the various treatment choices. . Function/Cognitive Trajectory The patient has been declining significantly in recent weeks, much weaker. He has had several falls in the past 2 weeks, but was still ambulating a few feet with his cane at home. He has remained mentally sharp but is quite hard of hearing. . Review of Systems Constitutional: COMPLAINS OF: Fatigue, Weight loss Endocrine: DENIES: Polyuria Eyes: COMPLAINS OF: Eye inflammation (Recent hordeolum) Ears, nose, mouth, throat: DENIES: Epistaxis Respiratory: COMPLAINS OF: Cough, Wheezing, Shortness of breath Cardiovascular: DENIES: Chest pain, Syncope Gastrointestinal: DENIES: Bloody stools, Diarrhea, Vomiting, Vomiting blood Genitourinary: DENIES: Hematuria Musculoskeletal: DENIES: Joint Swelling, Back pain Integumentary: DENIES: Rash Hematologic/Lymphatics: DENIES: Lymphadenopathy Immunologic/Allergic: DENIES: Urticaria Neurologic: DENIES: Localized weakness, Seizures Psychiatric: DENIES: Hallucinations, Agitation Past Family Social History Coded Allergies: meperidine (Unverified Allergy, Unknown, HALLUCINATIONS, 05/12/17) Past Medical History * COPD, not on long-term home oxygen * Sarcoid lung tumor diagnosed 08/14, recently taken off of chemotherapy * Primary lung cancer 2014, treated with radiation * Pancreatic cancer 2012, treated with surgery, chemo, radiation * History of liver abscess 2012, drained * History of KS 2014 * Hyperlipidemia * GERD * Hypothyroid * Recent falls with skin tears . Past Surgical History * Billroth procedure 1956 * Bilateral inguinal herniorrhaphies * Whipple procedure for pancreatic cancer 2012 * TURP * Pacemaker * Drainage of liver abscess 2012 Reported Medications Reported Meds & Active Scripts Active Augmentin (Amoxicillin-Clavulanate) 875-125 Mg Tab 1 Tab PO BID 7 Days Reported Oxycodone (Oxycodone HCl) 5 Mg Cap 5 Mg PO Q4H PRN Meclizine (Meclizine HCl) 25 Mg Tab 25 Mg PO DIRECTED PRN Vitamin D3 (Cholecalciferol) 2,000 Unit Cap 2,000 Units PO DAILY Ecotrin Regular Strength (Aspirin) 325 Mg Tabdr 325 Mg PO DAILY Metoprolol Tartrate 25 Mg Tab 25 Mg PO BID Aspirin 81 Mg Chew 81 Mg CHEW DAILY Zocor (Simvastatin) 20 Mg Tab 20 Mg PO DAILY Zenpep (Pancrelipase) 20,000-68,000-109,000 Units Cap 1 Cap PO TIDPC Synthroid (Levothyroxine Sodium) 25 Mcg Tab 25 Mcg PO DAILY Nitrostat SL (Nitroglycerin) 0.4 Mg Subl 0.4 Mg SL DIRECTED PRN 1 tablet under the tongue as needed for chest pain. Repeat every 5 minutes for a total of 3 DOSES or call 911 if NO relief. . Current Medications Medications (Trade) Dose Ordered Sig/Will Route Start Time Stop Time Status Last Admin (NS Flush) 2 ml UNSCH PRN IVF 02/11/18 08:45 (Morphine Inj) 2 mg Q1H PRN IM 02/11/18 10:15 Family History The patient's father from a farm accident, and mother of congestive heart failure. His sister with both breast and uterine cancers, and one brother is alive, living in a assisted, and has dementia. . Substance Use Tobacco: Quit smoking more than 50 years ago Alcohol: None Prescription med abuse: None Illicits: None . Psychosocial History The patient was born in [place], spent many years in [place], and has lived in this area since 1966. He has been twice, both 2 his current , totaling more than 60 years. They had no children. 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 . Spiritual/Cultural Factors The patient's background is Oriental Orthodox, spirituality has been important for him, and his local Oriental Orthodox Zoroastrian has offered support. In addition, the resource coordinator has been present with them here. . Living Will: Completed, but not made available Health Care Surrogate: Completed, but not made available Durable Power of Certified Hyperbaric Technologist: Completed, but not made available Health Care Surrogate(s): Chani . Documented care wishes: The patient and his report that he has a living will with typical language regarding end-stage conditions . Today's verbally stated goals: The patient and his both agree that he would not want to be resuscitated, and that he would want to focus on comfort at this time. They request DNR and hospice consultation. . Family/friends goals: Patient's supports his decisions. . Ethical and Legal Issues There are no ethical issues that would affect his care were decision-making at this time. The patient has capacity for decision-making. His is the designated healthcare surrogate. . Physical Exam Vital Signs Date Time Temp Pulse Resp B/P (MAP) Pulse Ox O2 Delivery O2 Flow Rate FiO2 02/11/18 08:53 92 Non-Rebreather 100 02/11/18 08:52 94 Non-Rebreather 15.00 02/11/18 08:52 144 24 94 Non-Rebreather 15.00 02/11/18 08:37 94 Non-Rebreather 15.00 02/11/18 08:18 97.9 144 24 117/67 (84) 91 Non-Rebreather 15.00 02/11/18 08:18 143 24 91 Non-Rebreather 15.00 02/11/18 08:13 97.9 144 24 117/67 (84) 91 Exam CONSTITUTIONAL/GENERAL: This is somewhat cachectic, dyspneic, elderly patient TUBES/LINES/DRAINS: Nonrebreather, peripheral IV SKIN: No jaundice, rashes, or lesions. Ecchymoses on upper extremities. Bandages over numerous skin tears on his arms and left hand. Skin temperature appropriate. Not diaphoretic. HEAD: Atraumatic. Normocephalic. EYES: Pupils equal and round and reactive. Extraocular motions intact. No scleral icterus. No injection or drainage. Fundi not examined. ENT: Hearing diminished. Nose without bleeding or purulent drainage. Throat without visible erythema, exudates, masses, or lesions. NECK: Trachea midline. Supple, nontender. No palpable thyroid enlargement or nodularity. CARDIOVASCULAR: Regular rate and rhythm without murmurs, gallops, or rubs. No JVD. Peripheral pulses symmetric. RESPIRATORY/CHEST: Symmetric, mild to moderately labored respirations. Rales on the right, scattered rhonchi. GASTROINTESTINAL: Abdomen soft, non-tender, nondistended. No hepato-splenomegaly , or palpable masses. No guarding. Bowel sounds present. GENITOURINARY: Without palpable bladder distension. MUSCULOSKELETAL: Extremities without clubbing, cyanosis, or edema. Bandages on the arms and left hand. LYMPHATICS: No palpable cervical or supraclavicular adenopathy. NEUROLOGICAL: Awake and alert. Hearing is decreased motor and sensory grossly within normal limits. Follows commands. Cognitively sharp. Moves all extremities. PSYCHIATRIC: No obvious anxiety/depression. no apparent hallucinations or other psychotic thought process. . Diagnostic Tests Laboratory Laboratory Tests Test 02/11/18 08:56 White Blood Count 31.9 TH/MM3 (4.0-11.0) Red Blood Count 4.02 MIL/MM3 (4.50-5.90) Hemoglobin 12.3 GM/DL (13.0-17.0) Hematocrit 37.7 % (39.0-51.0) Mean Corpuscular Volume 93.7 FL (80.0-100.0) Mean Corpuscular Hemoglobin 30.6 PG (27.0-34.0) Mean Corpuscular Hemoglobin Concent 32.6 % (32.0-36.0) Red Cell Distribution Width 17.5 % (11.6-17.2) Platelet Count 287 TH/MM3 (150-450) Mean Platelet Volume 8.5 FL (7.0-11.0) Neutrophils (%) (Auto) 90.6 % (16.0-70.0) Lymphocytes (%) (Auto) 3.4 % (9.0-44.0) Monocytes (%) (Auto) 5.8 % (0.0-8.0) Eosinophils (%) (Auto) 0.0 % (0.0-4.0) Basophils (%) (Auto) 0.2 % (0.0-2.0) Neutrophils # (Auto) 28.9 TH/MM3 (1.8-7.7) Lymphocytes # (Auto) 1.1 TH/MM3 (1.0-4.8) Monocytes # (Auto) 1.9 TH/MM3 (0-0.9) Eosinophils # (Auto) 0.0 TH/MM3 (0-0.4) Basophils # (Auto) 0.1 TH/MM3 (0-0.2) CBC Comment AUTO DIFF Differential Total Cells Counted 100 Neutrophils % (Manual) 79 % (16-70) Band Neutrophils % 5 % (0-6) Lymphocytes % 7 % (9-44) Monocytes % 8 % (0-8) Neutrophils # (Manual) 27.1 TH/MM3 (1.8-7.7) Myelocytes 1 % (0-0) Nucleated Red Blood Cells 1 /100 WBC (0-0) Differential Comment FINAL DIFF MANUAL Toxic Granulation 1+ (NORMAL) Platelet Estimate NORMAL (NORMAL) Platelet Morphology Comment NORMAL (NORMAL) Ovalocytes 1+ (NORMAL) Acanthocytes 1+ (NORMAL) Blood Urea Nitrogen 41 MG/DL (7-18) Creatinine 1.73 MG/DL (0.60-1.30) Random Glucose 155 MG/DL (74-106) Calcium Level 10.0 MG/DL (8.5-10.1) Sodium Level 142 MEQ/L (136-145) Potassium Level 4.3 MEQ/L (3.5-5.1) Chloride Level 105 MEQ/L (98-107) Carbon Dioxide Level 11.0 MEQ/L (21.0-32.0) Anion Gap 26 MEQ/L (5-15) Estimat Glomerular Filtration Rate 38 ML/MIN (>89) Total Creatine Kinase 61 U/L (39-308) Troponin I 0.22 NG/ML (0.02-0.05) B-Type Natriuretic Peptide 272 PG/ML (0-100) Result Diagram: 02/11/18 0856 02/11/18 0856 Imaging Last Impressions Chest X-Ray 02/11/18 0835 Signed Impressions: Service Date/Time: January 08:47 - CONCLUSION: 1. 6 x 6 cm well-circumscribed masslike densely along the lateral margin of the right lung possibly representing loculated fluid. CT imaging to exclude malignancy as warranted. 2. Patchy areas of infiltrate bilaterally. Juan J Boogie MD Patient/Family Conference Present at Family Conference: Patient's Chani and her sister; also present Mail Machine Operator Darío . Family Conference Time (mins): 48 Family Conference Location: Bedside Issues Discussed: * Palliative care role, purpose, approach * Hospice care role, purpose, approach * Additional medical, psychosocial, and spiritual history * Patients general health, functional status, and cognitive changes in the months leading up to the current hospitalization * Patient/family understanding of the current medical problems * Patient/family understanding of prognosis * Patients goals of care as best understood from advance directives and/or conversations and/or values * Current medical treatment options and benefits/burdens of those options * Likely scenarios comparing ongoing aggressive care with a transition to comfort measures only * Questions answered to the best of my ability * Palliative care contact information provided . 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 Spiritual: The patient's background is Oriental Orthodox, spirituality has been important for him, and his local Oriental Orthodox Zoroastrian has offered support. In addition, the resource coordinator has been present with them here. Legal: The patient has capacity for decision-making. His is the designated healthcare surrogate. Ethical issues impacting care: None . Important Contacts Chani [phone] . Prognosis The patient is terminal. He has underlying malignancy, significant COPD, and now respiratory failure with apparent pneumonitis. He is appropriate for hospice services. . Code Status: No Code Plan * DO NOT RESUSCITATE * DECISION-MAKING: The patient has capacity for decision-making. His is the designated healthcare surrogate. * GOALS: The patient and his both request hospice services, and he would like to go to [facility] of the [facility] for managing his dyspnea. * Hospice consult placed. * Mail Machine Operator services engaged. * SYMPTOMS: The patient has significant dyspnea, and orders have been written for morphine to begin symptom management. Hospice will then assume his care. * Palliative Care will continue to follow this patient during the hospitalization. . Time Spent Total Floor Time (mins): 79 Face to Face Time (mins): 55 >50% Counseling/Coord of Care: Yes (d/w Dr. Abrams and w RN) Thank you for the opportunity to participate in the care of Mr. Austin. Attestation To help prompt me to consider important information that might be impacting today's encounter and assessment, information from prior notes written by myself or my colleagues may have been "brought forward" into today's note. My signature on this note, however, is an attestation that I personally performed the exam, history, and/or decision-making noted today, and, unless otherwise indicated, the interactions with patient, family, and staff as well as the review of records all occurred today. I also attest that the listed assessment and stated plan reflect my best clinical judgment today based on the combination of historical information, prior notes, and today's exam/ interactions. When time spent is documented, it refers only to time spent today by the signer, or if indicated, combined time spent today by collaborating physician/nurse practitioner. Zoila Alonso MD February 11, 2018 10:57
--- NOTE | 2018-02-12 11:47 | EKG ---
Date Performed: 02/11/2018 Time Performed: 08:24:55 PTAGE: 82 years EKG: ECTOPIC ATRIAL TACHYCARDIA WITH SHORT ME INTERVAL, POSSIBLE ATRIAL FLUTTER RIGHT BUNDLE BRA NCH BLOCK LEFT ANTERIOR FASCICULAR BLOCK POSSIBLE ANTEROSEPTAL MYOCARDIAL INFARCTION ABNORMAL ECG INT ERPRETATION BASED ON A DEFAULT AGE OF 40 YEARS PREVIOUS TRACING : 02/11/2018 08.20 DOCTOR: Raymond Rodrigues Interpretating Date/Time 02/12/2018 11:45:03
== END 2018-02-11 13:35 | disposition expired ==
LOC: NEPE 08:04 → NEPI 13:35
DX: J96.91 Respiratory failure, unspecified with hypoxia (principal); J18.9 Pneumonia, unspecified organism; R94.31 Abnormal electrocardiogram [ECG] [EKG]; J44.9 Chronic obstructive pulmonary disease, unspecified; C34.11 Malignant neoplasm of upper lobe, right bronchus or lung; C25.9 Malignant neoplasm of pancreas, unspecified; E78.00 Pure hypercholesterolemia, unspecified; K21.9 Gastro-esophageal reflux disease without esophagitis; E03.9 Hypothyroidism, unspecified; Z86.79 Personal history of other diseases of the circulatory system; Z87.19 Personal history of other diseases of the digestive system
CPT/HCPCS: 71045; 80048; 82550; 83880; 84484; 85007; 85027; 93005; 94640; 94664; 96372; 99285; J2270; J7613